=== PATIENT | female | born 1965 | race Caucasian/White ===

== ENCOUNTER 2022-03-27 06:33 | Observation (INO) ==
[2022-03-27] MEDS ORDERED: *HR* FentaNYL (PF) 100 MCG/2 ML VIAL ONE (06:47)
[2022-03-27] MEDS ORDERED: *HR* Propofol 200 MG/20 ML VIAL IVP ONE (06:47)
[2022-03-27] MEDS ORDERED: Lidocaine -MPF 2% 5 ML VIAL ONE (06:50)
[2022-03-27] MEDS ORDERED: Ondansetron 4 MG/2 ML VIAL ONE (06:50)
[2022-03-27] MEDS ORDERED: *HR* Rocuronium Bromide 50 MG/5 ML VIAL ONE ×2 (06:52→08:11)
[2022-03-27] MEDS ORDERED: Ringers Solution, Lactated 1,000 ML IVC SCH (07:00)
[2022-03-27] MEDS ORDERED: Bupivacaine/EPI 1:200k 0.25% 50 ML VIAL ONE (07:04)
[2022-03-27] MEDS ORDERED: Ketamine HCL *QUVA* 50mg (1mL) SYRINGE ONE (07:09)
[2022-03-27] MEDS ORDERED: *HR* Midazolam HCl 2 MG/2 ML VIAL ONE (07:09)
[2022-03-27] MEDS ORDERED: levoFLOXacin 500 MG/100 ML 500 MG/100 ML BAG IVPB ONE (07:22)
[2022-03-27] MEDS ORDERED: Famotidine 20 MG/2 ML VIAL IVP ONE (07:26)
[2022-03-27] MEDS ORDERED: *HR* OxyCODONE Immed Rel 5 MG TABLET PO ONE (07:26)
[2022-03-27] MEDS ORDERED: Acetaminophen IV 1,000 MG/100 ML BAG IVPB ONE (07:26)
[2022-03-27] MEDS ORDERED: *HR* HYDROmorphone PF 0.5 MG/0.5 ML SYRINGE IVP PRN (07:27)
[2022-03-27] MEDS ORDERED: *HR* FentaNYL (PF) 100 MCG/2 ML VIAL IVP PRN (07:27)
[2022-03-27] MEDS ORDERED: Ondansetron 4 MG/2 ML VIAL IVP PRN ×2 (07:27→12:48)
[2022-03-27] MEDS ORDERED: *HR* HYDROMORPHONE 2 MG/ML VIAL ONE (08:30)
[2022-03-27] MEDS ORDERED: *HR* Magnesium Sulfate 1 GM/2 ML VIAL ONE (09:03)
[2022-03-27] MEDS ORDERED: *HR* Metoprolol 5 MG/5 ML VIAL IVP ONE (09:20)
[2022-03-27] MEDS ORDERED: Sugammadex Sodium 200 MG/2 ML VIAL IV ONE (10:35)
[2022-03-27] MEDS ORDERED: *HR* Promethazine 25 MG/ML VIAL IM PRN (12:48)
[2022-03-27] MEDS ORDERED: *HR* Belladonna Alkaloids/Opium 30 MG RECTAL SUPPOSITORY RC PRN (12:48)
[2022-03-27] MEDS ORDERED: Naloxone 0.4 MG/ML INJ IVP PRN (12:48)
[2022-03-27] MEDS ORDERED: *HR* OxyCODONE Immed Rel 5 MG TABLET PO PRN (12:48)
[2022-03-27] MEDS ORDERED: 0.9 % Sodium Chloride 1,000 ML IVC SCH (12:48)
[2022-03-27] MEDS ORDERED: *HR* HYDROcodone/Acet 5/325 mg TABLET PO PRN (12:48)
[2022-03-27] MEDS: CeFAZolin 2 GM/120 ML BAG IVPB SCH (16:23)
[2022-03-27] MEDS ORDERED: *HR* HYDROmorphone (PF) 1 MG/ML SYRINGE IVP ONE (23:49)
[2022-03-28] MEDS: CeFAZolin 2 GM/120 ML BAG IVPB SCH (00:24)
[2022-03-28] MEDS ORDERED: *HR* HYDROmorphone (PF) 1 MG/ML SYRINGE IVP ONE (08:27)
[2022-03-28] MEDS ORDERED: Bisacodyl 10 MG RECTAL SUPPOSITORY RC SCH (09:00)
[2022-03-28 10:00] LABS: Basophils % 0.3 %; Eosinophils % 0.1 %; Hematocrit 42.4 % (35.3-44.9); Immature Granulocytes % 0.5 % (0-4); Lymphocytes # 1.7 K/mcL (0.6-4.6); Lymphocytes % 12.7 %; Mean Corpuscular Hemoglobin 32.6 pg (28.0-33.3); Mean Corpuscular Volume 98.6 fL (83.0-100.0); Mean Platelet Volume 8.9 fL (9.4-12.4); Monocytes % 7.2 %; Neutrophils # 10.6 K/mcL (1.6-8.9); Platelet Count 275 K/mcL (140-400); Red Cell Distribution Width 12.2 % (11.5-14.5); Segmented Neutrophils % 79.2 %; White Blood Count 13.4 K/mcL (4.3-11.1)
[2022-03-28 10:19] LABS: Alanine Aminotransferase 9 Units/L (7-52); Albumin 4.2 g/dL (3.5-5.7); Albumin/Globulin Ratio 1.7 (1.1-2.2); Alkaline Phosphatase 85 Units/L (34-104); Aspartate Amino Transferase 12 Units/L (13-39); BUN/Creatinine Ratio 15 (6-26); Bilirubin,Total 0.6 mg/dL (0.3-1.0); Blood Urea Nitrogen 10 mg/dL (6-20); Calcium 8.9 mg/dL (8.6-10.3); Carbon Dioxide 26 mEq/L (23-29); Chloride 105 mEq/L (98-107); Globulin 2.5 g/dL (2.4-3.5); Glucose 103 mg/dL (70-105); Osmolality,Calculated 283 (280-300); Sodium 137 mEq/L (136-145); Total Protein 6.7 g/dL (6.4-8.9); eGFR For African Americans > 60 (> 60); eGFR For Non-African Americans > 60 (> 60)
[2022-03-28 12:05] VITALS: BP 126/85; PULSE 77; TEMP 98.5; O2SAT 92
== END 2022-03-28 13:39 | disposition home or self-care (01) ==
LOC: SAMDAY 06:33 → 3ANU 06:33
PROVIDERS: ADMIT Physician Assistant; ATTEND Urology